=== PATIENT | male | born 1970 | race Caucasian/White ===

== ENCOUNTER 2023-10-17 20:34 | Emergency (ER) | payer OTHER ==
[2023-10-17 20:39] VITALS: RESP 18; BMI 28.1
[2023-10-17] MEDS ORDERED: ACETAMINOPHEN INJECTION 100 ML IVPB ONE (21:28)
[2023-10-17] MEDS ORDERED: ONDANSETRON 4 MG/2 ML VIAL ONE (21:28)
[2023-10-17] MEDS ORDERED: FAMOTIDINE 20 MG/50 ML IVPB 20 MG/50 ML MG IVPB ONE (21:29)
[2023-10-17 22:05] LABS: BASO % 0.5 % (0-2.0); EOS % 11.1 % (0-4.5); HEMATOCRIT 40.6 % (35.4-49); HEMOGLOBIN 13.8 GM/dL (11.7-16.9); LYMPH % 12.9 % (8-40); MCH 28.7 pg (25.7-33.7); MEAN CELL VOLUME 84.4 fl (80-96); MEAN PLT VOLUME 7.9 fl (7.5-11.1); MONO % 7.9 % (3.8-10.2); NEUT % 67.6 % (42.8-82.8); PLATELET COUNT 224 10^3/uL (134-434); RBC 4.81 M/mm3 (4.00-5.60); RDW 13.9 % (11.9-15.9); WHITE BLOOD COUNT 4.8 K/mm3 (4.0-10.0)
[2023-10-17 22:11] LABS: INR 1.05 (0.83-1.09); PROTHROMBIN TIME (PATIENT) 11.9 SEC (9.7-13.0)
[2023-10-17 22:14] LABS: ACTIVATED PTT 33.4 SECONDS (25.2-36.5)
[2023-10-17] MEDS: ACETAMINOPHEN 1000 MG/100 ML BAG IVPB ONE (22:17)
[2023-10-17] MEDS: FAMOTIDINE 20 MG/50 ML IVPB 20 MG/50 ML MG IVPB ONE (22:17)
[2023-10-17] MEDS: SODIUM CHLORIDE 0.9% 500 ML INFUS.BAG IV ONE ×2 (22:17→23:31)
[2023-10-17] MEDS: ONDANSETRON 4 MG/2 ML VIAL IVPUSH ONE (22:17)
[2023-10-17 22:25] LABS: CHLORIDE 105 mmol/L (98-107); SODIUM 134 mmol/L (136-145)
[2023-10-17 22:27] LABS: CALCIUM 8.5 mg/dL (8.5-10.1)
[2023-10-17 22:28] LABS: ALBUMIN 3.6 g/dl (3.4-5.0); BLOOD UREA NITROGEN 10.5 mg/dL (7-18); CO2 27 mmol/L (21-32); GLUCOSE,RANDOM 93 mg/dL (74-106)
[2023-10-17 22:30] LABS: SGPT/ALT 27 U/L (13-61)
[2023-10-17 22:31] LABS: CREATININE 0.8 mg/dL (0.55-1.3); SGOT/AST 45 U/L (15-37)
[2023-10-17 22:32] LABS: BILIRUBIN,TOTAL 0.6 mg/dL (0.2-1)
[2023-10-17 22:33] LABS: ALK PHOS 87 U/L (45-117)
[2023-10-17 22:57] LABS: ANION GAP 2 mmol/L (4-13); POTASSIUM 6.3 mmol/L (3.5-5.1)
[2023-10-18 00:11] LABS: POTASSIUM 4.6 mmol/L (3.5-5.1)
[2023-10-18 00:14] LABS: BLOOD UREA NITROGEN 10.8 mg/dL (7-18); CALCIUM 8.1 mg/dL (8.5-10.1)
[2023-10-18 00:17] LABS: CREATININE 0.7 mg/dL (0.55-1.3)
[2023-10-18 00:23] VITALS: BP 92/59; PULSE 67; TEMP 98.6
== END 2023-10-18 01:21 | disposition home or self-care (01) ==
LOC: JER 20:34
PROC: 3E033GC Introduction of Other Therapeutic Substance into Peripheral Vein, Percutaneous Approach (ICD-10-PCS; principal; 2023-10-17)
PROC: 3E033NZ Introduction of Analgesics, Hypnotics, Sedatives into Peripheral Vein, Percutaneous Approach (ICD-10-PCS; 2023-10-17)
PROC: 3E033GC Introduction of Other Therapeutic Substance into Peripheral Vein, Percutaneous Approach (ICD-10-PCS; 2023-10-17)
DX: R19.7 Diarrhea, unspecified (principal); R11.2 Nausea with vomiting, unspecified; R10.84 Generalized abdominal pain; Z20.822 Contact with and (suspected) exposure to COVID-19
CPT/HCPCS: 0241U-QW; 36415; 80048; 80053; 83690; 84484; 85025; 85610; 85730; 93005; 93010; 99284-25; J0131